=== PATIENT | female | born 1990 | race Caucasian/White ===

== ENCOUNTER 2019-09-16 09:22 | Observation (INO) | payer MEDICAID, SELFPAY ==
--- NOTE | 2019-09-16 13:26 | OBADM ---
This patient, Milka Valladares, admitted to the OB room Labor/Delivery/Recovery 105 for observation. Patient/family oriented to hospital policies and general routines including ID bracelet, bed and alarms, visiting hours, pain management, procedures, bathroom and other care routines, personal items, smoking policy, room service/diet, and visiting hours. Patient/Family are encouraged to report perceived risks to care and to ask questions if they do not understand what they are told or what they should do.
--- NOTE | 2019-10-03 07:47 | PM.OBTRLD ---
OB - Triage/Final Diagnosis Final Diagnosis (1) False labor: Code(s): O47.9 - False labor, unspecified Status: Acute
== END 2019-09-16 13:35 | disposition home or self-care (01) ==
PROVIDERS: Admitting Provider Obstetrics & Gynecology; Visit Provider Obstetrics & Gynecology
DX: O47.1 False labor at or after 37 completed weeks of gestation (principal); Z3A.39 39 weeks gestation of pregnancy
CPT/HCPCS: G0378; G0379

== ENCOUNTER 2019-09-16 21:12 | Inpatient (IN) | payer MEDICAID, SELFPAY ==
[2019-08-26 12:34] VITALS: BMI 22.6
[2019-09-17] VITALS (104 sets, daily range): BP systolic 94–136; BP diastolic 51–109; PULSE 67–198; RESP 16–18; TEMP 36.5–37.3; O2SAT 93–100; BMI 22.1
[2019-09-17 01:23] LABS: Basophils Percent Auto 0.2 % (0.2-1.2); Hematocrit 37.7 % (37.0-47.0); Hemoglobin 12.4 g/dL (12.0-15.0); Immature Granulocyte Absolute 0.04 K/mm3 (0.00-0.031); Immature Granulocyte Percent A 0.4 % (0-0.5); Lymphocytes Absolute Auto 1.22 K/mm3 (0.9-3.2); Lymphocytes Percent Auto 12.8 % (18.3-44.2); Mean Corpuscular HGB Conc 32.9 g/dl (32-36); Mean Corpuscular Hemoglobin 27.6 pg (26-34); Mean Platelet Volume 11.6 fl (7.4-10.4); Monocytes Absolute Auto 0.5 K/mm3 (0.1-0.6); Monocytes Percent Auto 5.2 % (2.6-8.5); Neutrophils Absolute Auto 7.8 K/mm3 (1.3-6.7); Neutrophils Percent Auto 81.4 % (45.5-73.1); Platelet Count Result 179 k/mm3 (150-375); Red Blood Count 4.49 M/mm3 (4.2-5.4); Red Cell Distribution Width 14.6 % (11.5-14.5); White Blood Count 9.5 K/mm3 (4.5-10.0)
[2019-09-17] MEDS: LACTATED RINGERS 1,000 ML 125 ML IV CONT ×2 (01:29→02:18)
--- NOTE | 2019-09-17 01:58 | WPDANESEPP ---
Anes - Eval Pre Procedure Procedure: labor epidural Date/Time: 09/17/19 01:58 Surgeon: Leonides Preop Diagnosis: Pain during labor Pre Op Diagnosis: Contractions Patient Data Age: 28 Gender: F Height: 1.6 m Weight: 58 kg Last Vital Signs Temp 36.7 C 09/17/19 01:44 Pulse 94 09/17/19 01:56 BP 114/60 09/17/19 01:56 Pulse Ox 100 09/17/19 01:53 Allergies Allergy/AdvReac Type Severity Reaction Status Date / Time sulfasalazine Allergy Severe Abdominal Verified 08/26/19 13:03 Pain Home Medications Medication Instructions Recorded Confirmed Type No Home Medications 08/26/19 09/16/19 History Laboratory Tests 09/17/19 09/17/19 01:03 01:03 WBC 9.5 K/mm3 K/mm3 (4.5-10.0) RBC 4.49 M/mm3 M/mm3 (4.2-5.4) Hgb 12.4 g/dL g/dL (12.0-15.0) Hct 37.7 % % (37.0-47.0) MCV 84.0 fl fl (80-100) MCH 27.6 pg pg (26-34) MCHC 32.9 g/dl g/dl (32-36) RDW 14.6 % H % (11.5-14.5) Plt Count 179 k/mm3 k/mm3 (150-375) MPV 11.6 fl H fl (7.4-10.4) Immature Gran % (Auto) 0.4 % % (0-0.5) Neut % (Auto) 81.4 % H % (45.5-73.1) Lymph % (Auto) 12.8 % L % (18.3-44.2) [place] % (Auto) 5.2 % % (2.6-8.5) Eos % (Auto) 0.0 % % (0-4.4) Baso % (Auto) 0.2 % % (0.2-1.2) Lymph # (Auto) 1.22 K/mm3 K/mm3 (0.9-3.2) [place] # (Auto) 0.5 K/mm3 K/mm3 (0.1-0.6) Eos # (Auto) 0.0 K/mm3 K/mm3 (0-0.3) Baso # (Auto) 0.0 K/mm3 K/mm3 (0.0-0.1) Abs Immat Gran (auto) 0.04 K/mm3 H K/mm3 (0.00-0.031) Absolute Neuts (auto) 7.8 K/mm3 H K/mm3 (1.3-6.7) Absolute Nucleated RBC 0.0 K/mm3 K/mm3 (0.0-0.012) Nucleated RBC % 0.0 % % (0.0-0.2) RPR Pending Patient hx anesthesia problems: none Family hx anesthesia problems: none PMFSH Social History Social History Substance use: never Gender identity (if verbalized by the patient): Female Spiritual care concerns: No Exam Day of Procedure 09/17/19 01:58 Patient weight: normal
--- NOTE | 2019-09-17 02:04 | LDADM ---
This patient, Milka Valladares, was admitted to Labor/Delivery/Recovery 105 on 09/16/19 at 21:12. Plans for labor, pain management and were discussed with patient. Patient/family oriented to hospital policies and general routines including ID bracelet, bed and alarms, visiting hours, pain management, procedures, bathroom and other care routines, personal items, smoking policy, room service/diet and guest tray routines, infant security routines, and visiting hours. Patient/Family are encouraged to report perceived risks to care and to ask questions if they do not understand what they are told or what they should do. See OBIX for further documentation.
[2019-09-17] MEDS: OXYTOCIN 30 UNITS/NS 500 ML 30 UNITS/500 ML BAG 999 UNITS IV CONT (06:18)
[2019-09-17] MEDS: MISOPROSTOL 200 MCG TABLET 1000 MCG RECTAL (06:24)
[2019-09-17] MEDS: OXYTOCIN 30 UNITS/NS 500 ML 30 UNITS/500 ML BAG 125 UNITS IV CONT (06:54)
--- NOTE | 2019-09-17 07:04 | PM.OBPRVD ---
OB - Delivery Note Procedure Delivery date: 09/17/19 Induction method: none Delivery monitor: external FHT and external uterine Route of delivery: Laceration description: Labial (left labial) Delivery repair: vicryl Estimated blood loss (mL): 515 Anesthesia type: Epidural Complications: After delivery of placenta. Pt had a steady flow. Uterus boggy. Bimanual massage. Uterus firmed well with massage after 1-2 minutes. Cytotec 1000mcg per rectum. Flow decreased to normal ammount. Baby Date of : 09/17/19 Time of : 06:12 Weeks of gestation at delivery: 38 Infant gender: Male presentation: vertex position: Right Occiput Anterior Placenta delivery description: Spontaneous cord vessel description: 3 Vessels
--- NOTE | 2019-09-17 07:18 | WPDOBADMIT ---
Obstetrics - Admit Note Admission Note: 28 y/o G1 @ 39w2d here in spontaneous labor. record reviewed. No pertinent additions to the history and/or any subsequent changes in the physical findings that are not consistent with the expected course of the were found. Additions to the history and/or subsequent changes in the physical findings follow. None.
[2019-09-17] MEDS: WITCH HAZEL 40 PADS 1 PAD TOPICAL (09:39)
[2019-09-17] MEDS: BENZOCAINE 20% AER SPR (*SP) 56 GM CAN 1 SPRAY TOPICAL (09:39)
[2019-09-17 10:36] LABS: Rapid Plasma Reagin Non-Reactive (NonReactive)
--- NOTE | 2019-09-17 11:03 | OBPPTRN ---
Addendum entered by Maria Antonia Boston RN 09/17/19 11:04: Pt transferred to 286 at 1037. Original Note: Patient transferred to post room # 286 via wheelchair. Support person present. Oriented to unit, room, information board, rooming in, admission packet and security measures. Patient verbalizes understanding.
[2019-09-17] MEDS: ACETAMINOPHEN 325 MG TABLET 650 MG PO ×2 (13:20→22:34)
--- NOTE | 2019-09-17 13:30 | PC.NURSE ---
At 1308 pt was taken to the BR per the [facility]. Pt voided 800 cc without difficulty and then stated she was feeling faint. Wet washcloth placed on pt's neck and forehead and remained with pt. RN called for assistance to get pt back to bed. Ammonia capsule placed in front of pt and encouraged her to breath deeply. Pt proceeded to faint. After 20-30 seconds pt began to respond and mumble words to staff. With assistance of other RN's, pt was taken back to bed via wheelchair and placed flat with legs elevated. Pt talking now and states she feels a little better. See VS intervention.
--- NOTE | 2019-09-17 14:45 | PC.NURSE ---
Consulted with patient, Mother reports infant eagerly fed at first feeding. Reviewed infant feeding cues, frequencies, duration of feedings, feeding elimination flow sheet, and signs of adequate intake. Demonstrated stimulation techniques to wake for feeding. Assisted with to breast. Reviewed positioning/alignment, holding breast and asymmetrical latch on. Mother states she does not wish to hold breast or force infant to nipple. She would like for infant to self latch and learn to latch. Discussed feeding duration from last feeding. Mother stats she attempted at noon and was sleepy and not interested. Several attempts made in 20 minutes. Mother reports that is latched and nipple is not in infants mouth. Discussed signs of a correct latch, effective nursing and suck swallow ratio. Infant was not latched or effectively nursing. to nursery for blood glucose and assessment. Mother states she wishes to be supplemented this feeding. She will work on expressing milk with her Nidia, offered to assist mother with hospital double electric pump. Mother states she does not wish to pump and will use pump she has. Nipple care reviewed. Demonstrated self expression.
[2019-09-18] MEDS: ACETAMINOPHEN 325 MG TABLET 650 MG PO ×3 (04:38→21:38)
[2019-09-18 05:39] LABS: Hematocrit 24.7 % (37.0-47.0); Hemoglobin 7.9 g/dL (12.0-15.0)
--- NOTE | 2019-09-18 08:01 | P.PNOB_ITS ---
OB - PN: Subj Subjective Date/time seen: 09/18/19 08:01 OB - PN: Obj Data Labs CBC & Chem 7: 09/18/19 04:46 Labs: Laboratory Results - last 24 hr 09/17/19 09/18/19 01:03 04:46 Hgb 7.9 L D Hct 24.7 L RPR Non-reactive OB - PN A/P Assessment and Plan (1) Vaginal delivery: Code(s): O80 - Encounter for full-term uncomplicated delivery Status: Acute Plan day: 1 Plan: routine care Comments: Significant ebl. Pt is asymptomatic. Up and moving without difficulty. No s/s. Time Spent With Patient Time: Total time spent is greater than 50% in coordination of care (as doc umented) at patient's floor/unit and/or counseling patient: Review of Systems Review of Systems: All systems reviewed & are unremarkable except as noted in HPI and below Exam Narrative: Exam Narrative: Fundus firm and vaginal flow controlled. Const: General: comfortable Chest: Breast/axilla inspection: normal inspection of the breasts Resp: Effort & Inspection: normal respiratory effort Cardio: Rate: regular rate GI: Auscultation: normal bowel sounds Psych: Appearance: grossly normal Affect: normal affect Attitude: scooping machine tender perative Judgement: Good judgement present (Psych)
--- NOTE | 2019-09-18 08:40 | PC.NURSE ---
Consult with pt., mother states infant will latch and nurse, does not stay at the breast for more than a few sucks and will release. Discussed report of infant feeding difficulties during the night. Mother states infant needs to learn to latch. Discussed stimulation and milk supply, again offered to assist mother with pumping using hospital double electric pump. Mother refuses stating she will continue with her pump. Reviewed the difference of the generic [place] pump and active drawing with the electric pump and may obtain more EBM to offer to . Requested mother call out next feeding for assist/observation of feeding.
[2019-09-18] MEDS: WITCH HAZEL 40 PADS 1 PAD TOPICAL (09:48)
[2019-09-18] MEDS: LANOLIN (LANSINOH) 7.5 GM CREAM 1 APPLIC TOPICAL (09:49)
--- NOTE | 2019-09-18 10:25 | PC.NURSE ---
Checked in on mother for assist with feeding. Mother reports fed at 1000 for 10 minutes, she did not call out for assist for LC information security manager reporting infant was awake and eagerly nursing. Requested mother call out for RN or LC next feeding. Reviewed feeding should be by 1300 or before if infant is awake and showing feeding cures.
--- NOTE | 2019-09-18 13:00 | PCDIET ---
Consult with pt., to assist with feeding. Mother reports was awake so she put infant to breast at 1200. Mother reports infant nursed eagerly with good pulling at breast. Discussed RN or LC need to observe at breast, previous reports of not latching correctly or nursing effectively. With being a new mother, wanting to assist mother with good latch for her comfort and to make sure is nursing effectively for intake and to stimulate her milk supply.
--- NOTE | 2019-09-18 15:05 | PC.NURSE ---
Upon entering mother has to breast, infant is not latched is at nipple making sleepy attempts to lick at nipple. Mother is massaging at breast and small amounts of colostrum to mouth. Infant is making attempts to open, mother is bring head up to nipple. Suggested mother hold breast and assist with guiding infant to breast for a deep latch. Mother states she does not prefer to do hold breast, infant needs to learn to latch. Mother refuses assist and /or education stating she has friends that will assist her when home.
[2019-09-18 18:50] VITALS: BP 111/67; PULSE 103; RESP 14; TEMP 36.8; O2SAT 100
[2019-09-19] MEDS: ACETAMINOPHEN 325 MG TABLET 650 MG PO ×2 (06:03→12:34)
--- NOTE | 2019-09-19 07:51 | PM.OBPNVD ---
OB - PN: Subj Subjective Date/time seen: 09/19/19 07:51 Patient comments: no complaints, pain well controlled and tolerating diet OB - PN: Obj Data Labs CBC & Chem 7: 09/18/19 04:46 OB - PN A/P Plan day: 2 Plan: routine care and discharge home Time Spent With Patient Time: Total time spent is greater than 50% in coordination of care (as documented) at patient's floor/unit and/or counseling patient: Exam Const: General: comfortable and no acute distress Resp: Effort & Inspection: normal respiratory effort Auscultation: no rales, no rhonchi and no wheezes Cardio: Rate: regular rate Heart sounds: no click, no murmurs and no rubs GI: GI Palp: Yes Soft to palpation and No Tenderness to palpation present (GI) Auscultation: normal bowel sounds Extrem: General: normal to inspection, no pedal edema and no calf tenderness
--- NOTE | 2019-09-19 07:52 | PM.OBDSVD ---
DS: Admitting Diagnosis Admitting Diagnosis Admitting Diagnosis: Encounter for full-term uncomplicated delivery DS: Discharge Diagnosis Discharge Diagnosis (1) Vaginal delivery: Code(s): O80 - Encounter for full-term uncomplicated delivery Status: Acute OB - DS: Summary OB Procedures : None OB Procedures Intrapartum: Spontaneous Vag Delivery OB Procedures: : None Peripartum Data Infant Delivery Method: Natural Vaginal Time Spent with Patient Time attestation: Total time spent providing and/or coordinating discharge services: Discharge Plan Discharge Attending physician on discharge: Nessa Cueva Discharging Clinician: Nessa Cueva Patient Disposition: Home Health Service Activity: pelvic rest Diet: regular Patient Instructions: Antibiotic Form Stand Alone Forms: General Discharge Information Follow-up/Referrals: Nessa Cueva MD [Physician] - Discharge Medications: No Action No Home Medications RF: 0 Date of admission: 09/16/19 21:12 Primary Care Provider: UNKNOWN,DOCTOR Admitting Provider: Maritza Coyle Attending physician on admission: Maritza Coyle
[2019-09-19 08:55] VITALS: BP 98/66; PULSE 96; RESP 18; TEMP 37.2
== END 2019-09-19 18:56 | disposition home or self-care (01) | DRG 560 ==
LOC: ANHLDR 09-17 00:35 → ANHOB2 09-17 12:04 → ANHLDR 09-20 13:04 → ANHOB2 09-20 13:04
PROVIDERS: Advanced Practice Midwife; Admitting Provider Obstetrics & Gynecology; Visit Provider Obstetrics & Gynecology
DX: O70.0 First degree perineal laceration during delivery (principal); Z37.0 Single live birth; Z3A.39 39 weeks gestation of pregnancy; O36.8330 Maternal care for abnormalities of the fetal heart rate or rhythm, third trimester, not applicable or unspecified
CPT/HCPCS: 36415; 85014; 85018; 85025; 86592; 86850; 86900; 86901; A9270; G0378; G0379; J2590; J2795; J3010; J7120